=== PATIENT | male | born 1970 | race Caucasian/White ===

== ENCOUNTER 2025-04-10 18:57 | Emergency (ER) | payer BC, SELFPAY ==
[2025-04-10 19:39] VITALS: BP 158/86; PULSE 74; RESP 16; TEMP 36.5; O2SAT 100
--- NOTE | 2025-04-10 19:50 | ED_ITS ---
HPI - Skin/Abscess/Foreign Bdy General Chief complaint: Skin/Abscess/Foreign Body Stated complaint: RASH Time Seen by Provider: 04/10/25 19:58 Source: patient Mode of arrival: ambulatory Limitations: no limitations History of Present Illness HPI narrative: 54-year-old male presented for complaint of rash to the back of both legs. Onset today. First noticed this after he got out of the shower. Upon arriving to clinic he developed a red rash to the right upper inner arm. Denies lip, tongue, or throat swelling, shortness of breath or wheezing. Denies changes to soap, detergent, lotion, or any other exposures. No one else in the house or any contacts with similar symptoms. Endorses stress. Related Data Allergies Allergy/AdvReac Type Severity Reaction Status Date / Time No Known Allergies Allergy Mild Unverified 04/10/25 19:35 Review of Systems Review of Systems: CONSTITUTIONAL: Denies body aches, fever, chills, or sweats. EYES: Denies visual changes, redness, or discharge. ENT: Denies rhinorrhea, congestion CARDIOVASCULAR: Denies chest pain, palpitations, or edema. RESPIRATORY: Denies cough or dyspnea. GASTROINTESTINAL: Denies abdominal pain, nausea, vomiting, or diarrhea. SKIN: Reports rash MUSCULOSKELETAL: Denies back pain, joint pain, or myalgia. NEUROLOGIC: Denies headache, numbness, tingling, or weakness. PMFSH Comments At time of signature, I have reviewed and agree with nursing past medical, surgical, social and family history unless otherwise noted. Please see nursing chart for further information. There is no relevant family history pertinent to the presenting complaint Exam Narrative: GENERAL: Well-appearing HEAD: Normocephalic, atraumatic. EYES: conjunctivae clear, and EOMI. ENT: Mucous membranes moist. Oropharynx without edema, erythema or lesions. NECK: Supple. No lymphadenopathy CHEST: Clear to auscultation. HEART: Regular rate and rhythm. SKIN: Warm, dry. Large erythematous wheels noted to bilateral posterior legs, right upper medial arm consistent with urticaria NEURO: Alert and oriented x3. Course Course Emergency Course: Patient is aware of diagnosis, understands and agrees to treatment plan. Anticipatory guidance given. Patient agrees to follow-up as directed and is aware of reasons to seek care at the emergency department. Portions of this record may have been created with voice recognition software Level of Care: Express Care Visit Vital Signs Vital signs: Vital Signs Temperature 97.7 F 04/10/25 19:39 Pulse Rate 74 04/10/25 19:39 Respiratory Rate 16 04/10/25 19:39 Blood Pressure 158/86 H 04/10/25 19:39 Pulse Oximetry 100 04/10/25 19:39 Temperature 97.7 F 04/10/25 19:39 Pulse Rate 74 04/10/25 19:39 Respiratory Rate 16 04/10/25 19:39 Blood Pressure 158/86 H 04/10/25 19:39 Pulse Oximetry 100 04/10/25 19:39 Reviewed MDM - Skin/Abscess/Foreign Bdy MDM Narrative Medical decision making narrative: Discussed physical exam findings. Advised supportive measures and signs/symptoms to go to the ER. Pt is appropriate for outpt treatment and f/u. Differential Diagnosis Differential diagnosis: Likely abscess of skin or subcutaneous tissue, viral exanthem, dermatophytosis, urticaria, herpes zoster, cellulitis, eczema, insect bites, impetigo and contact dermatitis Discharge Plan Discharge Clinical Impression: Urticaria Patient Disposition: Home Condition: Stable Instructions: Antibiotic Form, Urticaria (ED) Additional Instructions: Take steroids and Pepcid as directed. Benadryl every 8 hours as needed for itching. Or you can take Zyrtec/Claritin according to package directions Cool compresses to the sites of itching, avoid hot water. Avoid scratching to reduce the risk of infection Follow up with your primary care provider as needed in 1 week Go to the ER for worsening symptoms or concerns (lip, tongue, throat swelling/itching, trouble breathing etc) Patient Language: Macedonian Prescriptions: New famotidine [Pepcid] 40 mg tablet 40 mg PO DAILY Qty: 10 0RF prednisone 20 mg tablet 20 mg PO DAILY Qty: 18 0RF Rx Instructions: take 3 tablets daily for 3 days, then 2 tablets daily for 3 days then 1 tablet daily for 3 days Follow-up/Referrals: Richard,Jase Watt MD [Primary Care Provider, Unknown] Time of Disposition: 20:04
== END 2025-04-10 20:07 | disposition home or self-care (01) ==
PROVIDERS: Emergency Provider Nurse Practitioner Family; PCP Internal Medicine
DX: L50.9 Urticaria, unspecified (principal)
CPT/HCPCS: 99203; G0463

== ENCOUNTER 2025-07-23 20:06 | Observation (INO) | payer BC, SELFPAY ==
--- NOTE | ~2025-07-23 | CT_ITS ---
EXAM/PROCEDURE: CT chest abdomen pelvis w con HISTORY: abdominal pain COMPARISON: None available. TECHNIQUE: Contrast-enhanced CT of the chest abdomen and pelvis performed FINDINGS: CHEST CT: The lungs are clear. Heart and great vessels normal size. No consolidation effusion or pneumothorax. No bulky lymphadenopathy or significant pericardial effusion. Thoracic bony structures appear intact. Small hiatal hernia with mild distal esophageal wall thickening. CT ABDOMEN AND PELVIS: Nonobstructive bowel gas pattern with no free air free fluid or pneumatosis seen. Normal size appendix aorta and gallbladder. No hydroureteronephrosis. 2.5 cm simple upper pole right renal cyst. Pancreas appears normal. Possible mild thickening in the the descending portion of the duodenum. No bulky lymphadenopathy or masses. Urinary bladder wall appears thickened. IMPRESSION: 1. Thickened appearance of the urinary bladder wall could be associated with cystitis; prostatitis also not excluded. 2. Slightly thickened appearance of the distal esophageal wall, and in the descending duodenum which could represent esophagitis and/or duodenitis. Correlate clinically. NOTE: Preliminary radiology report provided by [facility] radiologist/physician. Reviewed, dictated and finalized at location A. FITS CONSULTING ANALYST IMPRESSION: 1. Thickened appearance of the urinary bladder wall could be associated with cy stitis; prostatitis also not excluded. 2. Slightly thickened appearance of the distal esophageal wall, and in the desc ending duodenum which could represent esophagitis and/or duodenitis. Correlate clinically. NOTE: Preliminary radiology report provided by [facility] radiologist/physician.
[2025-07-23 20:21] VITALS: BP 161/88; PULSE 109; RESP 18; TEMP 36.4; O2SAT 99
[2025-07-23 22:12] VITALS: BP 183/87; PULSE 80; RESP 14; O2SAT 99
--- NOTE | 2025-07-23 22:17 | ECG_ITS ---
Test Date: 2025-07-23 23:29:17 Measurements Intervals [place] Rate: 87 P: 57 MN: 141 QRS: 42 QRSD: 104 T: 24 QT: 381 QTc: 461 Interpretive Statements SINUS RHYTHM INCOMPLETE RIGHT BUNDLE BRANCH BLOCK BORDERLINE ST-T WAVE ABNORMALITY- INFERIOR LEADS BORDERLINE ECG No previous ECG available for comparison Electronically Signed On 07-24-2025 06:10:17 DATABASE DESIGNER by Luis Manuel Adamson D.O.
[2025-07-23 22:18] LABS: Hematocrit 48.0 % (42.0-52.0); Hemoglobin 16.7 g/dL (14.0-18.0); Immature Granulocyte Percent A 0.4 % (0-0.5); Lymphocytes Absolute Auto 1.19 K/mm3 (0.9-3.2); Mean Corpuscular HGB Conc 34.8 g/dl (32-36); Mean Corpuscular Hemoglobin 33.1 pg (26-34); Mean Corpuscular Volume 95.0 fl (80-100); Nucleated Red Blood Cells Absolute Auto 0.000 K/mm3 (0.0-0.012); Nucleated Red Blood Cells Perc 0.0 % (0.0-0.2); Platelet Count Result 291 k/mm3 (150-375); Red Blood Count 5.05 M/mm3 (4.6-6.20); White Blood Count 8.4 K/mm3 (4.5-10.0)
--- NOTE | 2025-07-23 22:18 | ED_ITS ---
HPI - Nausea/Vomiting/Diarrhea General Chief complaint: Nausea/Vomiting/Diarrhea Stated complaint: N/V since yesterday Time Seen by Provider: 07/23/25 21:31 Source: patient and family Mode of arrival: ambulatory Limitations: no limitations History of Present Illness HPI Narrative: Patient is a 55-year-old male presents to the emergency department complaining of inability keep anything down by mouth over the past 24 hours. Patient admits to history of this in the past, has not seen anyone for it, denies any history of scopes or Gastroenterology evaluation. Patient notes that he has been able to keep down some liquids but no food. Gets some epigastric discomfort when he vomits. Denies any diarrhea. Admits to regular bowel movements. Denies any known fevers. Notes that he drinks alcohol about 18 beers a day for the past 30 years, has never stopped drinking or gone into alcohol withdrawal. Denies any illicit drug use. patient notes that he frequently gets a sensation of food getting stuck in his distal esophagus which seems to pass eventually, does not feel like something is stuck at this moment. Related Data Allergies Allergy/AdvReac Type Severity Reaction Status Date / Time No Known Allergies Allergy Mild Unverified 04/10/25 19:35 Review of Systems 2 Review of Systems: A 10 system review of systems was completed on the patient and is negative except for what is stated in the HPI. Nursing and ancillary documentation was reviewed. Exam 2 Narrative: CONST: No acute distress. Well nourished. HENMT: Head is normocephalic and atraumatic. Tacky mucous membranes. No posterior oropharynx erythema. EYES: No scleral icterus. No conjunctival injection or pallor. PERRL. NECK: No meningeal signs. RESP: Able to speak in full sentences. Normal respiratory effort. CTAB. CARDIO: Tachycardic rate. Regular rhythm. 2+ DP and radial pulses bilaterally. GI: Nondistended. No tenderness to palpation. Soft. : No CVA tenderness to palpation. SKIN: No rashes or lesions noted on exposed skin. NEURO: Oriented x3. Moves all extremities. EXTREM/MSK/BACK: No pedal edema. PSYCH: Normal affect. Course Vital Signs Vital signs: Vital Signs Temperature 97.5 F L 07/23/25 20:21 Pulse Rate 109 H 07/23/25 20:21 Respiratory Rate 18 07/23/25 20:21 Blood Pressure 161/88 H 07/23/25 20:21 Pulse Oximetry 99 07/23/25 20:21 Oxygen Delivery Room Air 07/23/25 20:21 Temperature 97.5 F L 07/23/25 20:21 Pulse Rate 109 H 07/23/25 20:21 Respiratory Rate 18 07/23/25 20:21 Blood Pressure 161/88 H 07/23/25 20:21 Pulse Oximetry 99 07/23/25 20:21 Oxygen Delivery Room Air 07/23/25 20:21 [facility] Narrative Medical decision making narrative: Patient presents with the above complaint. Initial vitals are remarkable for Tachycardia, elevated blood pressure. Physical examination as noted above. Plan discussed: laboratory analysis, EKG, imaging. Patient ordered IVF, Protonix, NPO, Zofran, CIWA assessments, continuous cardiac monitoring, continuous pulse oximetry. Upon returning from CT patient complaining of some itchiness and redness to his face, denies any chest pain or difficulty breathing, denies any vomiting or diarrhea, denies any tongue swelling, changes in his voice, difficulty swallowing. Patient ordered Benadryl and Solu-Medrol. Continue to monitor for any need for epinephrine, no anaphylaxis at this time. CT of the chest preliminary findings per Radiology interpretation is no evidence of acute intrathoracic abnormality. No focal consolidation, pleural effusion or pneumothorax. Small hiatal hernia. Distal esophageal mural thickening, inflammation versus under distention. CT of the abdomen pelvis preliminary findings radiology impression is no acute intra-abdominal abnormality. Cystitis and/or prostatomegaly changes. No hydronephrosis or nephrolithiasis. No bowel obstruction or inflammation. Diverticulosis. No biliary dilatation or calcified gallstone. I spoke with Gastroenterology on-call who agrees to see the patient in consultation. I spoke with the hospitalist on-call who has accepted the patient for admission. Differential Diagnosis Differential Diagnosis: gastritis, peptic ulcer disease, esophagitis, food-borne illness, viral syndrome, the esophageal strictures, alcoholic ketoacidosis, alcohol withdrawal, alcohol use disorder, pancreatitis, bowel obstruction, ACS. Lab Data [facility] Lab Attestation statement: I personally reviewed the patient's lab results. Lab results narrative: CBC is without any significant abnormalities. Coags are within normal limits. VBG reveals a pCO2 of 35, pH is 7.384, bicarb 20.4. Comprehensive metabolic panel is without any significant abnormalities. Lactic acid is 1.5. Phosphorus 3.9. Magnesium is 2.1. Troponin is 0.017. Lipase 78. Beta hydroxybutyrate is 1.98. TSH is 10.8. Urinalysis has 1+ protein, 3+ ketones, trace leukocyte esterase. Ethyl alcohol level is less than 10. 07/23/25 22:11 07/23/25 22:11 Labs: Lab Results 07/23/25 07/23/25 Range/Units 22:11 23:41 WBC 8.4 (4.5-10.0) K/mm3 RBC 5.05 (4.6-6.20) M/mm3 Hgb 16.7 (14.0-18.0) g/dL Hct 48.0 (42.0-52.0) % MCV 95.0 (80-100) fl MCH 33.1 (26-34) pg MCHC 34.8 (32-36) g/dl RDW 12.0 (11.5-14.5) % Plt Count 291 (150-375) k/mm3 MPV 9.9 (7.4-10.4) fl Immature Gran % (Auto) 0.4 (0-0.5) % Neut % (Auto) 71.5 (45.5-73.1) % Lymph % (Auto) 14.2 L (18.3-44.2) % [place] % (Auto) 12.4 H (2.6-8.5) % Eos % (Auto) 0.2 (0-4.4) % Baso % (Auto) 1.3 H (0.2-1.2) % Lymph # (Auto) 1.19 (0.9-3.2) K/mm3 [place] # (Auto) 1.0 H (0.1-0.6) K/mm3 Eos # (Auto) 0.0 (0-0.3) K/mm3 Baso # (Auto) 0.1 (0.0-0.1) K/mm3 Abs Immat Gran (auto) 0.03 (0.00-0.031) K/mm3 Absolute Neuts (auto) 6.0 (1.3-6.7) K/mm3 Absolute Nucleated RBC 0.000 (0.0-0.012) K/mm3 Nucleated RBC % 0.0 (0.0-0.2) % PT 13.7 (11.1-14.7) Seconds INR 1.1 APTT 24.6 (22.3-36.8) Seconds Sodium 140 (137-145) mmol/L Potassium 4.4 (3.4-5.0) mmol/L Chloride 103 (98-107) mmol/L Carbon Dioxide 26 (22-30) mmol/L Anion Gap 11 (4-12) mmol/L BUN 13 (9-20) mg/dL Creatinine 0.76 (0.7-1.3) mg/dL Estim Creat Clear Calc 113 ml/min Estimated GFR > 60 (59 - ) Glucose 110 (65-110) mg/dL Lactic Acid 1.5 (0.7-2.0) mmol/L Calcium 10.2 (8.4-10.2) mg/dL Phosphorus 3.9 (2.5-4.5) mg/dL Magnesium 2.1 (1.6-2.3) mg/dL Total Bilirubin 1.1 (0.2-1.3) mg/dL AST 52 (17-59) U/L ALT 43 (6-50) U/L Alkaline Phosphatase 77 (38-126) U/L Troponin I 0.017 (0.000-0.034) ng/mL Total Protein 9.3 H (6.3-8.2) g/dL Albumin 5.4 H (3.5-5.1) g/dL Lipase 78 (23-300) U/L Beta-Hydroxybutyrate/Acetoacetate 1.98 H (0.02-0.27) mmol/L TSH (Reflex) 10.800 H (0.465-4.68) uIU/mL Free T4 1.00 (0.78-2.19) ng/dL Total T3 Pending Urine Color Dark yellow (Yellow) Urine Appearance Clear (Clear) Urine pH 7.0 (5.0-9.0) Ur Specific [place] 1.024 (1.001-1.035) Urine Protein 1+ H (Negative) mg/dL Urine Glucose (UA) Negative (Negative) mg/dL Urine Ketones 3+ H (Negative) mg/dL Ur Blood (Man) Negative (Negative) Urine Nitrate Negative (Negative) Urine Bilirubin Negative (Negative) Urine Urobilinogen 1.0 (<2.0) mg/dL Leukocyte Esterase Rfl Trace H (Negative) OLAMIDE/UL Urine RBC 0-2 (0-2) /hpf Urine WBC 0-5 (0-3) /hpf Ur Squamous Epith Cells None seen (Few) /hpf Urine Bacteria None seen /hpf Urine Casts 0-2 Ethyl Alcohol < 10 (<10) mg/dL ABG Data ABG results: 07/23/25 23:42 VBG pH 7.384 VBG pCO2 35.0 L VBG pO2 47.9 H VBG HCO3 20.4 L O2 Delivery Device Room air O2 Liters/Min Not Reportable FiO2 21 ECG Data EKG #1: Attestation: I personally reviewed and interpreted this ECG as follows: ECG completion date: 07/23/25 ECG completion time: 23:29 Interpretation: Rate of 87, rhythm is sinus rhythm, incomplete right bundle-branch block, no ST elevations or depressions, no overt T-wave abnormalities, no old EKG on file for comparison. Discharge Plan Discharge Clinical Impression: Esophageal thickening, Hiatal hernia, Alcohol use disorder, Starvation ketoacidosis, Ketonuria, Dysphagia Patient Disposition: Still a Patient Condition: Stable Patient Language: Polish Prescriptions: No Action famotidine [Pepcid] 40 mg tablet 40 mg PO DAILY Qty: 10 0RF prednisone 20 mg tablet 20 mg PO DAILY Qty: 18 0RF Rx Instructions: take 3 tablets daily for 3 days, then 2 tablets daily for 3 days then 1 tablet daily for 3 days Follow-up/Referrals: Richard,Jase Watt MD [Primary Care Provider, Unknown] Time of Disposition: 00:34
[2025-07-23 22:25] LABS: Add Urine Microscopic? YES; Appearance Urine Clear (Clear); Glucose Urine UA Negative (Negative); Leukocyte Esterase Ur Trace LEU/UL (Negative); Nitrate Urine Negative (Negative); Non Pathogenic Casts 0-2; Specific Grav Ur 1.024 (1.001-1.035)
[2025-07-23 22:30] LABS: Alanine Aminotransferase 43 U/L (6-50); Albumin Level 5.4 g/dL (3.5-5.1); Alkaline Phosphatase 77 U/L (38-126); Anion Gap 11 mmol/L (4-12); Aspartate Amino Transferase 52 U/L (17-59); Bilirubin,Total 1.1 mg/dL (0.2-1.3); Blood Urea Nitrogen 13 mg/dL (9-20); Calcium 10.2 mg/dL (8.4-10.2); Carbon Dioxide 26 mmol/L (22-30); Chloride 103 mmol/L (98-107); Estimated CRCL calculation 113 ml/min; Estimated Glomerular Filt Rate > 60; Glucose 110 mg/dL (65-110); Lipase 78 U/L (23-300); Potassium 4.4 mmol/L (3.4-5.0); Sodium 140 mmol/L (137-145); Total Protein 9.3 g/dL (6.3-8.2)
[2025-07-23 22:31] VITALS: BP 146/76; PULSE 82; RESP 10; O2SAT 99
[2025-07-23 23:00] LABS: INR 1.1; Prothrombin Time 13.7 Seconds (11.1-14.7)
[2025-07-23 23:01] LABS: Partial Thromboplastin Time 24.6 Seconds (22.3-36.8)
[2025-07-23 23:05] LABS: Troponin I 0.017 ng/mL (0.000-0.034)
[2025-07-23 23:09] LABS: Magnesium 2.1 mg/dL (1.6-2.3)
[2025-07-23] MEDS: ONDANSETRON INJ 4 MG/2 ML VIAL IV PUSH (23:09)
[2025-07-23 23:10] LABS: Beta-Hydroxybutyrate/Acetoace. 1.98 mmol/L (0.02-0.27)
[2025-07-23] MEDS: DEXTROSE 5%/0.9% SOD CHL 1,000 ML 200 ML IV CONT (23:10)
[2025-07-23] MEDS: PANTOPRAZOLE SODIUM IV 40 MG VIAL IV PUSH (23:10)
[2025-07-23] MEDS: THIAMINE HCL 200 MG/2 ML VIAL 100 MG IV PUSH (23:10)
[2025-07-23] MEDS: SODIUM CHLORIDE 0.9% IV 1,000 ML 999 ML IV CONT ×2 (23:10→23:52)
--- NOTE | 2025-07-23 23:10 | PC.NURSE ---
This RN was in pt room when he returned from CT, pt face was flushed and bright red. pt also reported itching. denied any difficulty swallowing or difficulty breathing. EDP was notified. Benadryl and Solu-Medrol were given per EDP order. will continue to monitor.
[2025-07-23 23:42] LABS: Thyroid Stimulating Hormone Reflex 10.800 uIU/mL (0.465-4.68)
[2025-07-23 23:45] VITALS: PULSE 80; RESP 13; O2SAT 99
[2025-07-23 23:49] LABS: Fractional Inspired Oxygen 21 %; HCO3 VBG 20.4 mEq/l (24.0-30.0); PCO2 VBG 35.0 mmHg (42.0-48.0); PO2 VBG 47.9 mmHg (35.0-45.0); pH VBG 7.384 (7.300-7.400)
[2025-07-24] VITALS (17 sets, daily range): BP systolic 132–173; BP diastolic 76–94; PULSE 71–90; RESP 12–22; TEMP 36.2–37.1; O2SAT 96–100
[2025-07-24 00:14] LABS: Free T4 Free Thyroxine Reflex 1.00 ng/dL (0.78-2.19)
[2025-07-24 00:56] LABS: Total Triiodothyronine (T3) 1.65 NG/ML (0.82-1.58)
--- NOTE | 2025-07-24 01:14 | ECG_ITS ---
Test Date: 2025-07-24 01:20:58 Measurements Intervals [place] Rate: 74 P: 30 ID: [id number] QRS: 46 QRSD: 101 T: 24 QT: 396 QTc: 441 Interpretive Statements SINUS RHYTHM INCOMPLETE RIGHT BUNDLE BRANCH BLOCK BORDERLINE ECG Compared to ECG 07/23/2025 23:29:17 No significant changes Electronically Signed On 07-24-2025 06:14:34 BANK APPRAISER by Luis Manuel Adamson D.O.
[2025-07-24] MEDS: SODIUM CHLORIDE 0.9% IV 1,000 ML 125 ML IV CONT ×2 (01:26→09:32)
[2025-07-24 02:10] LABS: Troponin I < 0.012 ng/mL (0.000-0.034)
--- NOTE | 2025-07-24 02:15 | WPCEDHO ---
ED Hand Off Checklist All vitals saved:yes IV Site documented:yes All med administrations documented:yes Triage Note Triage Note Pt to ED via POV. Pt states he 07/23/25 22:02 has not been able to keep anything down since yesterday. Pt states he has tried pepto bismol and TUMS and has not had any relief. Pt denies constipation or diarrhea. Pt states anytime he eats something it feels stuck in chest area then he takes a drink to flush it down and he vomits. Pt states it occurs anytime he eats. Pt states it happens occasionally within the last 3-4 months. Pt states it feels like something is poking me in his stomach. Allergies No Known Allergies Allergy (Mild, Unverified 04/10/25 19:35) Active Medications including assessments/comments Dextrose/Sodium Chloride (Dextrose 5% Sodium Chloride 0.9%) 1,000 mls @ 200 mls/hr IV CONT .Q5H STA Stop: 07/24/25 03:32 Last Admin: 07/23/25 23:10 Dose: 200 mls/hr Documented By: EMW Infusion/Titration Document 07/23/25 23:10 EMW (Rec: 07/23/25 23:10 EMW [id number]) Intake IV Site Peripheral Access Right Antecubital Container Volume 1,000 Waste Amount 0 Dosing Infusion Rate 200 Cumulative Dose Not Applicable Increase/Decrease Started Elapsed Time Elapsed Time ( 0m minutes) Sodium Chloride (Normal Saline Iv) 1,000 mls @ 125 mls/hr IV CONT .Q8H [facility] Last Admin: 07/24/25 01:26 Dose: 125 mls/hr Documented By: EMW Infusion/Titration Document 07/24/25 01:26 EMW (Rec: 07/24/25 01:26 EMW [id number]) Intake IV Site Peripheral Access Right Antecubital Container Volume 1,000 Waste Amount 0 Dosing Infusion Rate 125 Cumulative Dose Not Applicable Increase/Decrease Started Elapsed Time Elapsed Time ( 0m minutes) Administered/Completed Medications Discontinued Medications Diphenhydramine HCl (Diphenhydramine Hcl Inj 50 Mg/Ml Vial) 50 mg IV PUSH ONCE STA Stop: 07/23/25 23:02 Last Admin: 07/23/25 23:10 Dose: 50 mg Documented By: EMW Sodium Chloride (Normal Saline Iv) 1,000 mls @ 999 mls/hr IV CONT .Q1H1M STA Stop: 07/23/25 23:16 Last Infusion: 07/24/25 00:56 Dose: Infused Documented By: Admin: 07/23/25 23:10 Dose: 999 mls/hr Documented By: EMW Sodium Chloride (Normal Saline Iv) 1,000 mls @ 999 mls/hr IV CONT .Q1H1M STA Stop: 07/24/25 00:37 Last Infusion: 07/24/25 00:56 Dose: Infused Documented By: Admin: 07/23/25 23:52 Dose: 999 mls/hr Documented By: ADALGISAW Methylprednisolone Sodium Succinate (Methylprednisolone Sod Succ 125 Mg Vial) 125 mg IV PUSH ONCE STA Stop: 07/23/25 23:02 Last Admin: 07/23/25 23:10 Dose: 125 mg Documented By: ADALGISAW Ondansetron HCl (Ondansetron Inj 4 Mg/2 Ml Vial) 4 mg IV PUSH ONCE STA Stop: 07/23/25 22:17 Last Admin: 07/23/25 23:09 Dose: 4 mg Documented By: MANISH Pantoprazole Sodium (Pantoprazole Sodium Iv 40 Mg Vial) 40 mg IV PUSH ONCE STA Stop: 07/23/25 22:17 Last Admin: 07/23/25 23:10 Dose: 40 mg Documented By: MANISH Thiamine HCl (Thiamine Hcl 200 Mg/2 Ml Vial) 100 mg IV PUSH ONCE ONE Stop: 07/23/25 22:34 Last Admin: 07/23/25 23:10 Dose: 100 mg Documented By: MANISH Notes 07/23/25 23:10 (created 07/24/25 00:35) Nurse Note by Kiera Aparicio This RN was in pt room when he returned from CT, pt face was flushed and bright red. pt also reported itching. denied any difficulty swallowing or difficulty breathing. EDP was notified. Benadryl and Solu-Medrol were given per EDP order. will continue to monitor. Initialized on 07/24/25 00:35 - END OF NOTE Interventions/Assessments IV / Saline Lock, Insert Start: 07/23/25 21:22 Freq: STAT Status: Active Protocol: Document 07/23/25 22:02 EMW (Rec: 07/23/25 22:07 EMW [id number]) IV Assessment Peripheral Access Right Antecubital IV Catheter Access Initiated IV Insertion Date 07/23/25 IV Insertion Time 22:02 Catheter Gauge 18 IV Insertion 1 Attempts Ultrasound Used for No Placement IV Site Assessment WNL IV Care and WNL Maintenance PA: Gastrointestinal Assessment Start: 07/23/25 20:07 Freq: Status: Active Protocol: Document 07/23/25 22:07 EMW (Rec: 07/23/25 22:08 EMW [id number]) Nausea/Vomiting Assessment Nausea Frequency At Mealtime Emesis Frequency Intermittent Emesis Description Clear GI Assessment Gastrointestinal Nausea,Pain,Vomiting Symptoms Gastrointestinal pt also reports it feels like something is poking in Additional Comments his stomach PA: Neurological Assessment Start: 07/24/25 00:58 Freq: Status: Active Protocol: Document 07/24/25 00:58 EMW (Rec: 07/24/25 00:58 EMW [id number]) Neurological Assessment Level of Alert,Awake Consciousness Orientation Oriented to Person,Oriented to Place,Oriented to Time Neurological Nausea/Vomiting Symptoms Unable to Redirect No Behavior Patient Able to Comprehend Comprehension Memory Description Intact Hallucination Type None Behavior Cooperative Ability to Maintain Normal Balance [place] Coma Scale Eyes Open Verbal Oriented and Alert Motor Follows Commands [place] Coma Total 15 Score Last Vital Signs Temperature 98.4 F 07/24/25 00:55 Pulse Rate 72 07/24/25 02:00 Respiratory Rate 15 07/24/25 02:00 Pulse Oximetry 98 07/24/25 02:00 Blood Pressure 162/91 H 07/24/25 01:01 Blood Pressure Mean 111 07/24/25 01:01 Oxygen Delivery Room Air 07/23/25 20:21 Weight 84 kg 07/23/25 22:02 Last Result - Abnormals Only Lymph % (Auto) 14.2 % (18.3-44.2) L 07/23/25 22:11 [place] % (Auto) 12.4 % (2.6-8.5) H 07/23/25 22:11 Baso % (Auto) 1.3 % (0.2-1.2) H 07/23/25 22:11 [place] # (Auto) 1.0 K/mm3 (0.1-0.6) H 07/23/25 22:11 VBG pCO2 35.0 mmHg (42.0-48.0) L 07/23/25 23:42 VBG pO2 47.9 mmHg (35.0-45.0) H 07/23/25 23:42 VBG HCO3 20.4 mEq/l (24.0-30.0) L 07/23/25 23:42 POC Capillary Glucose 124 mg/dl (65-105) H 07/24/25 00:59 Total Protein 9.3 g/dL (6.3-8.2) H 07/23/25 22:11 Albumin 5.4 g/dL (3.5-5.1) H 07/23/25 22:11 Beta-Hydroxybutyrate/Acetoacetate 1.98 mmol/L (0.02-0.27) H 07/23/25 22:11 TSH (Reflex) 10.800 uIU/mL (0.465-4.68) H 07/23/25 22:11 Total T3 1.65 NG/ML (0.82-1.58) H 07/23/25 22:11 Urine Protein 1+ mg/dL (Negative) H 07/23/25 22:11 Urine Ketones 3+ mg/dL (Negative) H 07/23/25 22:11 Leukocyte Esterase Rfl Trace OLAMIDE/UL (Negative) H 07/23/25 22:11 Most Recent CIWA Score CIWA Total Score 5 07/23/25 23:11 Most Recent Suicide Severity Rating Suicide Severity Rating NO RISK INDICATED 07/23/25 22:02
--- NOTE | 2025-07-24 02:33 | ADMGEN ---
This patient, Jose Fuentes, was admitted to [facility] Surg Room 327-01. Patient/family oriented to hospital policies and general routines including ID bracelet, bed and alarms, visiting hours, pain management, procedures, bathroom and other care routines, personal items, smoking policy, room service/diet, and visiting hours. Information on how to activate the Rapid Response Team has been discussed. Patient/Family are encouraged to report perceived risks to care and to ask questions if they do not understand what they are told or what they should do.
[2025-07-24 04:53] LABS: Troponin I < 0.012 ng/mL (0.000-0.034)
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
[2025-07-24 09:15] LABS: Anion Gap 9 mmol/L (4-12); Blood Urea Nitrogen 12 mg/dL (9-20); Calcium 8.8 mg/dL (8.4-10.2); Carbon Dioxide 21 mmol/L (22-30); Chloride 109 mmol/L (98-107); Estimated CRCL calculation 123 ml/min; Estimated Glomerular Filt Rate > 60; Glucose 151 mg/dL (65-110); Potassium 3.7 mmol/L (3.4-5.0); Sodium 139 mmol/L (137-145)
[2025-07-24] MEDS: PANTOPRAZOLE SODIUM IV 40 MG VIAL IV PUSH (09:30)
[2025-07-24] MEDS: THIAMINE HCL 200 MG/2 ML VIAL 100 MG IV PUSH (09:30)
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
[2025-07-24] MEDS: LACTATED RINGERS 1,000 ML 150 ML IV CONT (13:46)
--- NOTE | 2025-07-24 14:28 | S_PTH ---
PATIENT: Jose Fuentes LOC: [id number] U#:[id number] AGE/SX: 55/M ROOM: 327 RE07/24/[address]: Pio Denis MD : 1970 BED: 01 DIS: 07/24/2025 SPEC #: [id number] RECD: 07/25/25 09:01 STATUS: VICENTEChristiano REGian #: [id number] SIRI: 07/24/25 14:[address]: Javon Elder DEPT: [facility] Surgical RECD BY: Nilda Maza ENTERED: 07/25/25 09:02 SP TYPE: Surgical OTHR DR: DO Jase Germain, Tissues: A - Gastric Biopsy B - Esophageal Biopsy C - Esophageal Biopsy Procedures: Hematoxylin and Eosin Stain Gross and Microscopic Level 4
--- NOTE | 2025-07-24 14:59 | P.DS_ITS ---
DS: Admitting Diagnosis Discharge Date 07/24/25 Admitting Diagnosis Nausea vomiting for 1 day DS: Summary Hospital Course Hospital Course: 5-year-old with a past medical history of chronic alcoholism who presented to the ER with nausea vomiting for 1 day. The patient reports that he has been having intermittent issues with food getting stuck on and off for several years. He usually associated with eating to faster taking too big of a bite of food. He is usually able to clear the food with drinking fluids afterwards. Occasionally he will after the vomit up the food that is stuck. However on Monday while eating a steak he felt as if it got stuck. He did take some drinks of be urine soda but just continued to have vomiting afterwards. He felt as if he was having pain in the middle of his chest the pain would resolve after he would vomit. He was not able to keep any solids or liquids down after that. When got up the next morning and went to work he tried to drink some Gatorade and was still having vomiting. He reports he occasionally will have some discomfort in the epigastric region when trying to drink liquids but for the most part he feels a pressure up in is chest. He still proceeded to finish his work day before deciding to come into the ER on the night of the . He reports he has still been having normal bowel movements. He denies having any hematemesis or coffee-ground emesis. He has not had any fevers or chills. He denies any chronic GERD symptoms are symptoms of dyspepsia at baseline. patient with dysphagia was seen by the GI and had EGD which showed Reflux esophagitis, Grade III: (circumferential erosions/ulcerations) ([place]) was present in the distal esophagus. Multiple biopsies of upper and lower esophagus in different bottles were taken to assess of EoE. 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 The stenosis was traversed. It seems that patient recently had food bolus that cleared spontaneously and noted now stasis with active inflammation. That is the reason why I did not dilate today. Mild gastritis was seen in the antrum. The gastritis had erythematous and edematous changes. Multiple biopsies were taken. patient will follow up with GI and will have repeat EGD to further evaluate. patient is clinically stable, will discharge today Time Spent with Patient Time attestation: Total time spent providing and/or coordinating discharge services: DS: Data Data Completed and Pending Pending studies at discharge: Pending at discharge 07/24/25 14:28 Surgical [PTH] Routine Labs on day of discharge: Labs from last 24 hours 07/24/25 07/24/25 07/24/25 11:49 08:50 08:04 WBC RBC Hgb Hct MCV MCH MCHC RDW Plt Count MPV Immature Gran % (Auto) Neut % (Auto) Lymph % (Auto) [place] % (Auto) Eos % (Auto) Baso % (Auto) Lymph # (Auto) [place] # (Auto) Eos # (Auto) Baso # (Auto) Abs Immat Gran (auto) Absolute Neuts (auto) Absolute Nucleated RBC Nucleated RBC % PT INR APTT VBG pH VBG pCO2 VBG pO2 VBG HCO3 O2 Delivery Device O2 Liters/Min FiO2 Sodium 139 Potassium 3.7 Chloride 109 H Carbon Dioxide 21 L Anion Gap 9 BUN 12 Creatinine 0.73 Estim Creat Clear Calc 123 Estimated GFR > 60 Glucose 151 H POC Capillary Glucose 142 H 176 H Lactic Acid Calcium 8.8 Phosphorus Magnesium Total Bilirubin AST ALT Alkaline Phosphatase Troponin I Total Protein Albumin Lipase Beta-Hydroxybutyrate/Acetoacetate TSH (Reflex) Free T4 Total T3 Urine Color Urine Appearance Urine pH Ur Specific [place] Urine Protein Urine Glucose (UA) Urine Ketones Ur Blood (Man) Urine Nitrate Urine Bilirubin Urine Urobilinogen Leukocyte Esterase Rfl Urine RBC Urine WBC Ur Squamous Epith Cells Urine Bacteria Urine Casts Ethyl Alcohol 07/24/25 07/24/25 07/24/25 04:26 01:30 00:59 WBC RBC Hgb Hct MCV MCH MCHC RDW Plt Count MPV Immature Gran % (Auto) Neut % (Auto) Lymph % (Auto) [place] % (Auto) Eos % (Auto) Baso % (Auto) Lymph # (Auto) [place] # (Auto) Eos # (Auto) Baso # (Auto) Abs Immat Gran (auto) Absolute Neuts (auto) Absolute Nucleated RBC Nucleated RBC % PT INR APTT VBG pH VBG pCO2 VBG pO2 VBG HCO3 O2 Delivery Device O2 Liters/Min FiO2 Sodium Potassium Chloride Carbon Dioxide Anion Gap BUN Creatinine Estim Creat Clear Calc Estimated GFR Glucose POC Capillary Glucose 124 H Lactic Acid Calcium Phosphorus Magnesium Total Bilirubin AST ALT Alkaline Phosphatase Troponin I < 0.012 < 0.012 D Total Protein Albumin Lipase Beta-Hydroxybutyrate/Acetoacetate TSH (Reflex) Free T4 Total T3 Urine Color Urine Appearance Urine pH Ur Specific [place] Urine Protein Urine Glucose (UA) Urine Ketones Ur Blood (Man) Urine Nitrate Urine Bilirubin Urine Urobilinogen Leukocyte Esterase Rfl Urine RBC Urine WBC Ur Squamous Epith Cells Urine Bacteria Urine Casts Ethyl Alcohol 07/23/25 07/23/25 07/23/25 23:42 23:41 22:11 WBC 8.4 RBC 5.05 Hgb 16.7 Hct 48.0 MCV 95.0 MCH 33.1 MCHC 34.8 RDW 12.0 Plt Count 291 MPV 9.9 Immature Gran % (Auto) 0.4 Neut % (Auto) 71.5 Lymph % (Auto) 14.2 L [place] % (Auto) 12.4 H Eos % (Auto) 0.2 Baso % (Auto) 1.3 H Lymph # (Auto) 1.19 [place] # (Auto) 1.0 H Eos # (Auto) 0.0 Baso # (Auto) 0.1 Abs Immat Gran (auto) 0.03 Absolute Neuts (auto) 6.0 Absolute Nucleated RBC 0.000 Nucleated RBC % 0.0 PT 13.7 INR 1.1 APTT 24.6 VBG pH 7.384 VBG pCO2 35.0 L VBG pO2 47.9 H VBG HCO3 20.4 L O2 Delivery Device Room air O2 Liters/Min Not Reportable FiO2 21 Sodium 140 Potassium 4.4 Chloride 103 Carbon Dioxide 26 Anion Gap 11 BUN 13 Creatinine 0.76 Estim Creat Clear Calc 113 Estimated GFR > 60 Glucose 110 POC Capillary Glucose Lactic Acid 1.5 Calcium 10.2 Phosphorus 3.9 Magnesium 2.1 Total Bilirubin 1.1 AST 52 ALT 43 Alkaline Phosphatase 77 Troponin I 0.017 Total Protein 9.3 H Albumin 5.4 H Lipase 78 Beta-Hydroxybutyrate/Acetoacetate 1.98 H TSH (Reflex) 10.800 H Free T4 1.00 Total T3 1.65 H Urine Color Dark yellow Urine Appearance Clear Urine pH 7.0 Ur Specific [place] 1.024 Urine Protein 1+ H Urine Glucose (UA) Negative Urine Ketones 3+ H Ur Blood (Man) Negative Urine Nitrate Negative Urine Bilirubin Negative Urine Urobilinogen 1.0 Leukocyte Esterase Rfl Trace H Urine RBC 0-2 Urine WBC 0-5 Ur Squamous Epith Cells None seen Urine Bacteria None seen Urine Casts 0-2 Ethyl Alcohol < 10 Discharge Plan Discharge Attending physician on discharge: Pat Driver Consulting providers: Javon Elder; Miguel Pinzon; Linda Oliveira; Luis Manuel Adamson; Cornelius Cervantes; Arben Lindsay Discharging Clinician: Pio Denis Patient Disposition: Home Activity: as tolerated Diet: heart healthy Discharge Instructions: patient is instructed avoid alcohol, eat small portion and chew before swallowing, patient will need repeat endoscopy in 4-6 week and will have esophageal dilation, patient to follow up with his primary care provider as soon as possible, patient is instructed to go to nearest ER. Patient Language: Georgian Stand Alone Forms: General Discharge Information, Work/School Release IP Follow-up/Referrals: Richard,Jase Watt MD [Primary Care Provider, Unknown] Javon Elder MD [Physician, Gastroenterology] Discharge Medications: New pantoprazole 40 mg tablet,delayed release (DR/EC) 40 mg PO BID Qty: 60 1RF multivitamin [Multiple Vitamins] Tablet 1 tablet PO DAILY Qty: 90 0RF Date of admission: 07/24/25 00:34 Primary Care Provider: RichardJase Admitting Provider: Pat Driver Attending physician on admission: Pio Denis Condition: Stable
== END 2025-07-24 16:25 | disposition home or self-care (01) ==
LOC: ANHED 07-24 00:19 → ANH3MEDSUR 07-24 01:51
PROVIDERS: Internal Medicine Gastroenterology; Admitting Provider Internal Medicine; Emergency Provider Student in an Organized Health Care Education/Training Program; PCP Internal Medicine; Visit Provider Family Medicine
PROC: 0DJ08ZZ Inspection of Upper Intestinal Tract, Via Natural or Artificial Opening Endoscopic (ICD-10-PCS; CPT 43239; principal; 2025-07-24 15:30)
DX: K21.00 Gastro-esophageal reflux disease with esophagitis, without bleeding (principal); K22.2 Esophageal obstruction; K22.89 Other specified disease of esophagus; K29.70 Gastritis, unspecified, without bleeding; K44.9 Diaphragmatic hernia without obstruction or gangrene; R11.14 Bilious vomiting; R13.19 Other dysphagia; E86.0 Dehydration; E87.29 Other acidosis; R79.89 Other specified abnormal findings of blood chemistry; I45.10 Unspecified right bundle-branch block; F10.20 Alcohol dependence, uncomplicated; Z80.1 Family history of malignant neoplasm of trachea, bronchus and lung; Z83.6 Family history of other diseases of the respiratory system
CPT/HCPCS: 43239; 36415; 71260; 74177; 80048; 80053; 81001; 82010; 82077; 82803; 82948; 83605; 83690; 83735; 84100; 84439; 84443; 84480; 84484; 85025; 85610; 85730; 87040; 88305; 93005; 96361; 96374; 96375; 96376; 99285; G0378; J1200; J2405; J2470; J2919; J3411; J7030; J7042; J7120; Q9967